=== PATIENT | male | born 1995 | race Caucasian/White ===

== ENCOUNTER 2020-10-09 12:53 | Observation (INO) | payer MEDICAID ==
[2020-10-09] MEDS ORDERED: Sodium Chloride 0.9% 10 ML Syringe FLUSH PRN (12:54)
[2020-10-09] MEDS ORDERED: Sodium Chloride 0.9% 1,000 ML IV ONE (12:56)
[2020-10-09] MEDS ORDERED: Naloxone 2 MG in Sodium Chloride 0.9% 500 ML IV SCH (13:00)
--- NOTE | 2020-10-09 13:34 | CR ---
PROCEDURE INFORMATION: Exam: XR Chest Exam date and time: 10/09/2020 1:08 PM Age: 24 years old Clinical indication: Other: S/P cpr for overdose TECHNIQUE: Imaging protocol: XR of the chest. Views: 1 view. COMPARISON: No relevant prior studies available. FINDINGS: Lungs: The lungs are hyperinflated, consistent with underlying small airways disease. Pleural spaces: There is no evidence of pneumothorax. There are no pleural effusions present. Heart/Mediastinum: Unremarkable. No cardiomegaly. Bones/joints: Unremarkable. IMPRESSION: 1. The lungs are hyperinflated, consistent with underlying small airways disease. 2. There is no evidence of pneumothorax.
[2020-10-09 13:45] LABS: ANION GAP 14.7 mEq/L (7-13); CHLORIDE,CL 96 mmol/L (98-107); SODIUM,NA 137 mmol/L (136-145)
[2020-10-09 13:49] LABS: PTT,PARTIAL THROMBOPLSTIN TIME 21.3 SEC (22.0-34.0)
[2020-10-09] MEDS ORDERED: Potassium Chloride 10 MEQ Tab.ER PO ONE ×2 (13:58→18:59)
[2020-10-09] MEDS ORDERED: Potassium Chloride 10 MEQ in Premix Bag 1 BAG IV ONE (13:58)
[2020-10-09] MEDS ORDERED: Lidocaine 1% 30 ML SDV ONE (14:00)
[2020-10-09 15:14] LABS: CORONAVIRUS COVID-19 NAA NEGATIVE (NEGATIVE)
--- NOTE | 2020-10-09 15:15 | EDM.PDOC ---
Scribed by Roslyn Bejarano 10/09/20 [id number] for Ml Chen MD ED HPI GENERAL MEDICAL PROBLEM - General Chief Complaint: Drug or Alcohol Abuse Stated Complaint: IN BY AMBULANCE Time Seen by Provider: 10/09/20 12:52 Source of Information: Reports: Patient, EMS, EMS Notes Reviewed, RN, RN Notes Reviewed History Limitations: Reports: No Limitations - History of Present Illness INITIAL COMMENTS - FREE TEXT/NARRATIVE: Patient arrives to ED by [facility]. The patient was found pulseless and not breathing in the shower. CPR was initiated by bystanders. EMS administered Narcan 2mg and patient promptly woke up. Patient admits to IV Heroin use x4 days. He claims he was clean and sober for over a year, but relapsed due to stress at home. Pt states he began using drugs at age 13yrs and quickly became addicted to Heroin. He claims he has overdosed before, but never had to have CPR. Now in the ER pt is awake, alert, and cooperative. He denies p ain. Admits to feeling very cold. Pt denies suicidal intent. Onset: Today, Unknown/Unsure Duration: Resolved Prior to Arrival Location: Reports: Generalized Severity: Severe Associated Symptoms: Reports: No Other Symptoms - Related Data Allergies Allergy/AdvReac Type Severity Reaction Status Date / Time Unable to Assess Allergy Unverified 10/09/20 15:02 Home Meds: Home Meds . [No Known Home Meds] 10/09/20 [History] Past Medical History Psychiatric History: Reports: Addiction Social & Family History - Family History Family Medical History: Unobtainable - Recreational Drug Use Recreational Drug Use: Yes Drug Use in Last 12 Months: Yes Recreational Drug Type: Reports: Heroin - Living Situation & Occupation Living situation: Reports: with Significant Other ED ROS GENERAL - Review of Systems Review Of Systems: Comprehensive ROS is negative, except as noted in HPI. ED EXAM, GENERAL - Physical Exam Exam: See Below Exam Limited By: No Limitations General Appearance: Alert, WD/WN, No Apparent Distress Eye Exam: Bilateral Eye: EOMI, PERRL (pin point pupils) Ears: Normal External Exam, Hearing Grossly Normal Nose: Other (Dried blood at nares) Throat/Mouth: Normal Inspection, Normal Lips, Normal Oropharynx, Normal Voice, No Airway Compromise Head: Atraumatic, Normocephalic Neck: Normal Inspection, Supple, Non-Tender, Full Range of Motion Respiratory/Chest: No Respiratory Distress, Lungs Clear, Normal Breath Sounds, No Accessory Muscle Use, Chest Non-Tender Cardiovascular: Normal Peripheral Pulses, Regular Rate, Rhythm, No Edema, No Gallop, No JVD, No Murmur, No Rub GI/Abdominal: Normal Bowel Sounds, Soft, Non-Tender, No Organomegaly, No Distention, No Abnormal Bruit, No Mass Back Exam: Normal Inspection, Full Range of Motion, NT Extremities: Normal Range of Motion, Non-Tender, No Pedal Edema, Normal Capillary Refill, Other (Extensive new and old needle track vega) Neurological: Alert, Oriented, CN II-XII Intact, Normal Cognition, Normal Reflexes, No Motor/Sensory Deficits Psychiatric: Normal Affect, Normal Mood Skin Exam: Warm, Dry, Intact, Normal Color, No Rash #1 Interpretation EKG Date: 10/09/20 Time: 13:09 Rhythm: Other (sinus rhythm) Rate (Beats/Min): 78 [place]: Normal P-Wave: Present QRS: Other (left ventricular hypertrophy) ST-T: Normal QT: Normal Comparison: NA - No Prior EKG Course - Vital Signs Last Recorded V/S: Last Vital Signs Temp 98 F 10/09/20 14:45 Pulse 100 10/09/20 14:45 Resp 16 10/09/20 14:45 BP 94/52 L 10/09/20 14:45 Pulse Ox 96 10/09/20 14:45 - Orders/Labs/Meds Orders: Active Orders 24 hr Category Date Time Status EKG 12 Lead [EKG Documentation Completion] [RC] STAT Care 10/09/20 12:55 Active Peripheral IV Care [RC] . DIRECTED Care 10/09/20 12:56 Active COVID-19/FLU A+B [MOLEC] Stat Lab 10/09/20 14:31 Received UA W/MICROSCOPIC [URIN] Stat Lab 10/09/20 14:58 Results Naloxone [Narcan] 2 mg Med 10/09/20 13:00 Active Sodium Chloride 0.9% [Normal Saline] 500 ml IV ASDIRECTED Sodium Chloride 0.9% [Saline Flush] Med 10/09/20 12:54 Active 10 ml FLUSH ASDIRECTED PRN Peripheral IV Insertion Adult [OM.PC] Stat Oth 10/09/20 12:55 Ordered Medication Orders Naloxone HCl 2 mg/ Sodium (Chloride) 502 mls @ 100 mls/hr IV ASDIRECTED ANGELA; Protocol Last Titration: 10/09/20 14:57 Dose: 0.1 mg/hr, 25.1 mls/hr Documented by: [id number] Titration: 10/09/20 14:08 Dose: 0.2 mg/hr, 50.2 mls/hr Documented by: [email or web address] Admin: 10/09/20 13:30 Dose: 0.4 mg/hr, 100.4 mls/hr Documented by: [email or web address] Sodium Chloride (Sodium Chloride 0.9% 10 Ml Syringe) 10 ml FLUSH ASDIRECTED PRN PRN Reason: Keep Vein Open Last Admin: 10/09/20 13:38 Dose: 10 ml Documented by: [id number] Labs: Laboratory Tests 10/09/20 10/09/20 10/09/20 Range/Units 13:13 13:13 13:13 WBC 4.2 L (5.0-10.0) 10^3/uL RBC 4.40 L (4.6-6.2) 10^6/uL Hgb 14.1 (14.0-18.0) g/dL Hct 39.1 L (40.0-54.0) % MCV 88.9 (80-100) fL MCH 32.0 (27.0-34.0) pg MCHC 36.1 H (33.0-35.0) g/dL Plt Count 340 (150-450) 10^3/uL Neut % (Auto) 57.1 (42.2-75.2) % Lymph % (Auto) 34.0 (20.5-50.1) % [place] % (Auto) 7.5 (2-8) % Eos % (Auto) 1.2 (1.0-3.0) % Baso % (Auto) 0.2 (0.0-1.0) % PT 11.6 (9.0-12.0) SEC INR 1.2 (0.9-1.2) APTT 21.3 L (22.0-34.0) SEC Sodium 137 (136-145) mmol/L Potassium 2.7 L (3.5-5.1) mmol/L Chloride 96 L (98-107) mmol/L Carbon Dioxide 29 (21-32) mmol/L Anion Gap 14.7 H (7-13) mEq/L BUN 13 (7-18) mg/dL Creatinine 1.25 (0.70-1.30) mg/dL Est Cr Clr Drug Dosing 86.09 mL/min Estimated GFR (MDRD) > 60 BUN/Creatinine Ratio 10.4 (No establ ref range) Glucose 196 H (70-99) mg/dL Calcium 8.6 (8.5-10.1) mg/dL Total Bilirubin 1.2 H (0.2-1.0) mg/dL AST 26 (15-37) U/L ALT 27 (16-63) U/L Alkaline Phosphatase 68 (46-116) U/L Troponin I < 0.017 (0.000-0.056) ng/mL Total Protein 7.0 (6.4-8.2) g/dL Albumin 4.1 (3.4-5.0) g/dL Globulin 2.9 Albumin/Globulin Ratio 1.4 Urine Color (YELLOW) Urine Appearance (CLEAR) Urine pH (5.0-9.0) Ur Specific [place] (1.005-1.030) Urine Protein (NEGATIVE) Urine Glucose (UA) (NEGATIVE) Urine Ketones (NEGATIVE) Urine Occult Blood (NEGATIVE) Urine Nitrite (NEGATIVE) Urine Bilirubin (NEGATIVE) Urine Urobilinogen (0.2-1.0) mg/dL Ur Leukocyte Esterase (NEGATIVE) Urine Opiates Screen (NEGATIVE) Ur Oxycodone Screen (NEGATIVE) Urine Methadone Screen (NEGATIVE) Ur Barbiturates Screen (NEGATIVE) U Tricyclic Antidepress (NEGATIVE) Ur Phencyclidine Scrn (NEGATIVE) Ur Amphetamine Screen (NEGATIVE) U Methamphetamines Scrn (NEGATIVE) Urine MDMA Screen (NEGATIVE) U Benzodiazepines Scrn (NEGATIVE) Urine Cocaine Screen (NEGATIVE) U Marijuana (THC) Screen (NEGATIVE) Ethyl Alcohol < 3 (0) mg/dL 10/09/20 10/09/20 Range/Units 14:58 14:58 WBC (5.0-10.0) 10^3/uL RBC (4.6-6.2) 10^6/uL Hgb (14.0-18.0) g/dL Hct (40.0-54.0) % MCV (80-100) fL MCH (27.0-34.0) pg MCHC (33.0-35.0) g/dL Plt Count (150-450) 10^3/uL Neut % (Auto) (42.2-75.2) % Lymph % (Auto) (20.5-50.1) % [place] % (Auto) (2-8) % Eos % (Auto) (1.0-3.0) % Baso % (Auto) (0.0-1.0) % PT (9.0-12.0) SEC INR (0.9-1.2) APTT (22.0-34.0) SEC Sodium (136-145) mmol/L Potassium (3.5-5.1) mmol/L Chloride (98-107) mmol/L Carbon Dioxide (21-32) mmol/L Anion Gap (7-13) mEq/L BUN (7-18) mg/dL Creatinine (0.70-1.30) mg/dL Est Cr Clr Drug Dosing mL/min Estimated GFR (MDRD) BUN/Creatinine Ratio (No establ ref range) Glucose (70-99) mg/dL Calcium (8.5-10.1) mg/dL Total Bilirubin (0.2-1.0) mg/dL AST (15-37) U/L ALT (16-63) U/L Alkaline Phosphatase (46-116) U/L Troponin I (0.000-0.056) ng/mL Total Protein (6.4-8.2) g/dL Albumin (3.4-5.0) g/dL Globulin Albumin/Globulin Ratio Urine Color Yellow (YELLOW) Urine Appearance Slightly cloudy (CLEAR) Urine pH 7.0 (5.0-9.0) Ur Specific [place] 1.025 (1.005-1.030) Urine Protein Trace H (NEGATIVE) Urine Glucose (UA) Negative (NEGATIVE) Urine Ketones Trace H (NEGATIVE) Urine Occult Blood Trace-intact H (NEGATIVE) Urine Nitrite Negative (NEGATIVE) Urine Bilirubin Negative (NEGATIVE) Urine Urobilinogen 1.0 (0.2-1.0) mg/dL Ur Leukocyte Esterase Negative (NEGATIVE) Urine Opiates Screen Negative (NEGATIVE) Ur Oxycodone Screen Negative (NEGATIVE) Urine Methadone Screen Negative (NEGATIVE) Ur Barbiturates Screen Negative (NEGATIVE) U Tricyclic Antidepress Negative (NEGATIVE) Ur Phencyclidine Scrn Negative (NEGATIVE) Ur Amphetamine Screen Positive H (NEGATIVE) U Methamphetamines Scrn Positive H (NEGATIVE) Urine MDMA Screen Negative (NEGATIVE) U Benzodiazepines Scrn Negative (NEGATIVE) Urine Cocaine Screen Negative (NEGATIVE) U Marijuana (THC) Screen Positive H (NEGATIVE) Ethyl Alcohol (0) mg/dL Meds: Medications Generic Name Dose Route Start Last Admin Trade Name Freq PRN Reason Stop Dose Admin Naloxone HCl 2 mg/ Sodium 502 mls @ 100 mls/hr 10/09/20 13:00 10/09/20 14:57 Chloride IV 0.1 mg/hr ASDIRECTED ANGELA 25.1 mls/hr Titration Protocol Sodium Chloride 10 ml 10/09/20 12:54 10/09/20 13:38 Sodium Chloride 0.9% 10 Ml Syringe FLUSH 10 ml ASDIRECTED PRN Administration Keep Vein Open Discontinued Medications Generic Name Dose Route Start Last Admin Trade Name Freq PRN Reason Stop Dose Admin Sodium Chloride 1,000 mls @ 999 mls/hr 10/09/20 12:56 10/09/20 13:30 Normal Saline IV 10/09/20 13:56 999 mls/hr .BOLUS ONE Administration Potassium Chloride 10 meq/ 100 mls @ 100 mls/hr 10/09/20 13:58 10/09/20 14:19 Premix IV 10/09/20 14:57 100 mls/hr ONETIME ONE Administration Lidocaine HCl 30 ml 10/09/20 14:00 10/09/20 14:42 Lidocaine 1% 30 Ml Sdv .XX 10/09/20 14:01 30 ml ONETIME ONE Administration Potassium Chloride 60 meq 10/09/20 13:58 10/09/20 14:18 Potassium Chloride 10 Meq Tab.Er PO 10/09/20 13:59 60 meq ONETIME ONE Administration - Radiology Interpretation Free Text/Narrative:: [facility] Final Radiology Report Call: [phone] assistance Online chat: [email or web address] Name: RONNIE ALVARENGA Age: 24Years M Date: 10/09/2020 SSN: -- : [id number] Study: CR CHEST 1V FRONTAL Requesting Physician: ML CHEN Images: 2 Addl Studies: Provided Clinical History: s/p CPR for overdose Contrast: Contrast Medium: Contrast Amount: Contrast Method: CONFIDENTIALITY STATEMENT This report is intended only for use by the referring physician, and only in accordance with law. If you received this in error, call [phone]. Page 1 of 1 PROCEDURE INFORMATION: Exam: XR Chest Exam date and time: 10/09/2020 1:08 PM Age: 24 years old Clinical indication: Other: S/P cpr for overdose TECHNIQUE: Imaging protocol: XR of the chest. Views: 1 view. COMPARISON: No relevant prior studies available. FINDINGS: Lungs: The lungs are hyperinflated, consistent with underlying small airways disease. Pleural spaces: There is no evidence of pneumothorax. There are no pleural effusions present. Heart/Mediastinum: Unremarkable. No cardiomegaly. Bones/joints: Unremarkable. IMPRESSION: 1. The lungs are hyperinflated, consistent with underlying small airways disease. 2. There is no evidence of pneumothorax. Thank you for allowing us to participate in the care of your patient. Dictated and Authenticated by: Rajeev Simon DO 10/09/2020 1:33 PM Central Time ([place] & [place]) Departure - Departure Time of Disposition: 15:13 (admitted to Dr. Mejia) Disposition: Refer to Observation Condition: Good Clinical Impression: Polysubstance abuse, Hypokalemia Accidental overdose Qualifiers: Encounter type: initial encounter Qualified Code(s): T50.901A - Poisoning by unspecified drugs, medicaments and biological substances, accidental (unintentional), initial encounter - Discharge Information *PRESCRIPTION DRUG MONITORING PROGRAM REVIEWED*: No *COPY OF PRESCRIPTION DRUG MONITORING REPORT IN PATIENT EVITA: No Forms: ED Department Discharge Sepsis Event Note (ED) - Focused Exam Vital Signs: Vital Signs Temp Pulse Resp BP Pulse Ox 10/09/20 14:45 98 F 100 16 94/52 L 96 - My Orders Last 24 Hours: My Active Orders 10/09/20 12:54 Sodium Chloride 0.9% [Saline Flush] 10 ml FLUSH ASDIRECTED PRN 10/09/20 12:55 EKG 12 Lead [EKG Documentation Completion] [RC] STAT Peripheral IV Insertion Adult [OM.PC] Stat 10/09/20 12:56 Peripheral IV Care [RC] . DIRECTED 10/09/20 13:00 Naloxone [Narcan] 2 mg Sodium Chloride 0.9% [Normal Saline] 500 ml IV ASDIR ECTED 10/09/20 14:31 COVID-19/FLU A+B [MOLEC] Stat 10/09/20 14:58 UA W/MICROSCOPIC [URIN] Stat - Assessment/Plan Last 24 Hours: My Active Orders 10/09/20 12:54 Sodium Chloride 0.9% [Saline Flush] 10 ml FLUSH ASDIRECTED PRN 10/09/20 12:55 EKG 12 Lead [EKG Documentation Completion] [RC] STAT Peripheral IV Insertion Adult [OM.PC] Stat 10/09/20 12:56 Peripheral IV Care [RC] . DIRECTED 10/09/20 13:00 Naloxone [Narcan] 2 mg Sodium Chloride 0.9% [Normal Saline] 500 ml IV ASDIRECTED 10/09/20 14:31 COVID-19/FLU A+B [MOLEC] Stat 10/09/20 14:58 UA W/MICROSCOPIC [URIN] Stat I have read and agree with the documentation that has been completed regarding this visit. By signing this record, I attest that the documentation was completed in my physical presence and is an accurate record of the encounter.
[2020-10-09] MEDS ORDERED: Acetaminophen 325 MG Tab PO PRN (15:50)
[2020-10-09] MEDS ORDERED: Ondansetron 4 MG/2 ML SDV IVPUSH PRN (15:50)
--- NOTE | 2020-10-09 15:59 | PCM.SN.2 ---
- Free Text/Narrative Note: START OF DOCTOR BROOKEMIJulio HISTORY AND PHYSICAL / CONSULTATION NOTE Chief Complaint: Drug overdose History of Present Illness: The patient is a 24-year-old male who was transferred to the emergency department due to drug overdose. Apparently the patient was found in a shower unresponsive after injecting heroin. From what was conveyed to me, the patient was pulseless and CPR was initiated and the patient was successfully resuscitated from a cardiac standpoint. The patient received Narcan and regained consciousness as well. Patient has extensive history of drug abuse for which he states he started using heroin at the age of 14. At the present time the patient endorses no complaints. He denies fever, rigors, nausea, vomiting, cough, wheeze, abdominal pain, dyspnea, or any other constitutional complaints. He presents for further evaluation Surgical History: Bilateral myringotomy tube placement as a child with subsequent removal Family History: Denies Social History: Tobacco: Former smoker Alcohol: Rare Caffeine: Cola Drugs: Present drug use: Methamphetamine, heroin, marijuana. Past drug use: Crack, cocaine, shrooms, LSD Allergies: No known drug allergies Code Status: Full Pertinent Laboratory Results / Pertinent Radiology Results / Pertinent Diagnostic Results / Pertinent Vital Signs: Blood pressure 94/52, pulse 100, respiration 16, temperature 90 degrees, 9 6% room air, potassium 2.7, total bilirubin is 1.2. Urine drug screen positive for amphetamine, methamphetamine, marijuana Physical Examination: General: -Alert -No acute distress -No dyspnea -No tachypnea -edentulous Head: -Atraumatic -Normocephalic Eyes: -Pupils equally round and reactive to light and accommodation -Extraocular muscles intact Neurological: -Cranial nerves II-XII intact Neck: -No jugular venous distention -No thyromegaly -No cervical lymphadenopathy Heart: -Regular rate -Regular rhythm -No murmurs -No gallops -No rubs Lungs: -No wheeze -No rhonchi -No rales Abdomen: -Normal bowel sounds in all four quadrants -No rebound -No guarding -No tenderness Extremities: -2/4 pulse in all four extremities -No clubbing -No cyanosis -No edema -No calf tenderness present bilaterally -Negative Homans sign bilaterally Musculoskeletal: -5/5 bilateral upper extremity strength -5/5 bilateral lower extremity strength -Sensorium of bilateral upper extremities are equal and intact -Sensorium of bilateral lower extremities are equal and intact Additional Details / Additional Findings / Exceptions / Miscellaneous: Assessment / Plan: Drug overdose. Seizure caution. Neuro checks every 4 hours. Telemetry monitoring. IV normal saline 100 mL/h. Check HIV, hepatitis panel, RPR. I requested case management evaluate the patient for referral for drug rehabilitation on discharge Polysubstance abuse. The patient will be counseled regarding cessation of methamphetamine, heroin, marijuana Hypokalemia. Telemetry monitoring. Will monitor potassium levels intermittently and supplement as necessary Hyperbilirubinemia. Will monitor LFTs periodically with CMP. IV normal saline 100 mL/h DVT prophylaxis. Bilateral CD Disposition: Anticipate discharge within 24 hours END OF DOCTOR EMAMIS HISTORY AND PHYSICAL / CONSULTATION NOTE
[2020-10-09] MEDS: Sodium Chloride 0.9% 1,000 ML IV SCH (17:07)
[2020-10-10] MEDS: Sodium Chloride 0.9% 1,000 ML IV SCH (03:06)
--- NOTE | 2020-10-10 07:37 | PCM.SN.2 ---
- Free Text/Narrative Note: START OF DOCTOR EMAMIS DISCHARGE SUMMARY Date of Admission: October 09, 2020 Date of Discharge: 7:34 AM on October 10, 2020 Primary Diagnosis: Drug overdose with heroin with subsequent cardiopulmonary arrest with successful cardiac resuscitation and regaining consciousness with administration of Narcan Secondary Diagnosis: Polysubstance abuse with urine drug screen positive for amphetamine, methamphetamine, marijuana Hypokalemia, resolved Hyperbilirubinemia Microscopic hematuria Consultations: None Condition on Discharge: Good Disposition: The patient will be advised to follow-up with urology within 1 month of discharge for microscopic hematuria The patient will receive a referral for drug rehabilitation upon discharge for his extensive history of drug abuse and ongoing drug abuse Discharge Medications: None END OF DOCTOR EMAMIS DISCHARGE SUMMARY
== END 2020-10-10 11:00 | disposition home or self-care (01) ==
LOC: DL.ED 12:53 → DL.MS 15:17 → DL.ED 15:22
PROVIDERS: ADMIT Internal Medicine; ATTEND Internal Medicine
DX: T40.1X1A Poisoning by heroin, accidental (unintentional), initial encounter (principal); E87.6 Hypokalemia; F19.10 Other psychoactive substance abuse, uncomplicated; E80.6 Other disorders of bilirubin metabolism; Z20.822 Contact with and (suspected) exposure to COVID-19; Z98.890 Other specified postprocedural states; Z87.891 Personal history of nicotine dependence
CPT/HCPCS: 0240U; 36415; 71045; 80053; 80074; 80076; 80305-QW; 80307; 81001; 83735; 84132; 84484; 85025; 85610; 85730; 86592; 87389; 93005; 93010; 96365; 96366; 96368; 99284; 99285-25; A9270-GY; G0378; J2310; J3480; J7030; J7040

== ENCOUNTER 2020-12-11 12:42 | Emergency (ER) | payer MEDICAID ==
--- NOTE | 2020-12-11 12:44 | EDM.PDOC ---
ED HPI GENERAL MEDICAL PROBLEM - General Chief Complaint: Abdominal Pain Stated Complaint: COMING FROM CLINIC Time Seen by Provider: 12/11/20 13:15 Source of Information: Reports: Patient, Old Records, Provider (Sabino DRAKE), RN, RN Notes Reviewed History Limitations: Reports: No Limitations - History of Present Illness INITIAL COMMENTS - FREE TEXT/NARRATIVE: Pt sent from clinic by Sabino DRAKE for evaluation of severe diffuse abdominal pain. Pt reports onset of abdominal pain and diarrhea 2 or 3 days ago. The pain has persistently worsened and today became severe. He admits to nausea, but no vomiting. Pt rates the pain 10/10. Nothing alleviates the pain. Any movement aggravates the pain. Pt denies any past surgical Hx to the abdomen. Pt is unsure if he has had any fevers. Onset: Gradual Duration: Day(s): (2-3), Constant, Getting Worse Location: Reports: Abdomen Quality: Reports: Ache Severity: Severe Improves with: Reports: None Worsens with: Reports: Movement Associated Symptoms: Reports: No Other Symptoms - Related Data Allergies Allergy/AdvReac Type Severity Reaction Status Date / Time No Known Allergies Allergy Verified 10/09/20 16:04 Past Medical History - Past Health History Medical/Surgical History: Denies Medical/Surgical History Cardiovascular History: Reports: Automatic Implantable Cardioverter Defibrillators Respiratory History: Reports: Asthma Gastrointestinal History: Reports: None Musculoskeletal History: Reports: Fracture Other Musculoskeletal History: Hx of right ankle fracture Neurological History: Reports: Seizure Psychiatric History: Reports: ADHD, Addiction, Anxiety Endocrine/Metabolic History: Reports: Hypokalemia Dermatologic History: Reports: None - Infectious Disease History Infectious Disease History: Reports: None - Past Surgical History Other Neurological Surgeries/Procedures: Hx of seizure over a yr. ago. pt.states possibly from hx of past drug use. Social & Family History - Family History Family Medical History: Unobtainable - Caffeine Use Caffeine Use: Reports: Soda Other Caffeine Use: unknown - Living Situation & Occupation Living situation: Reports: with Spouse ED ROS GENERAL - Review of Systems Review Of Systems: Comprehensive ROS is negative, except as noted in HPI. ED EXAM, GI/ABD - Physical Exam Exam: See Below Exam Limited By: No Limitations General Appearance: Alert, Anxious, Mild Distress, Thin Eyes: Bilateral: Normal Appearance (No scleral icterus) Nose: Normal Inspection Throat/Mouth: Normal Lips, Normal Voice, No Airway Compromise, Other (Dry oral mucosa) Head: Atraumatic, Normocephalic Neck: Normal Inspection Respiratory/Chest: No Respiratory Distress, Lungs Clear, Normal Breath Sounds, No Accessory Muscle Use, Chest Non-Tender Cardiovascular: Regular Rate, Rhythm, No Edema GI/Abdominal Exam: Soft, No Distention, Guarding, Rebound, Tender (acutely tender, diffusely tender) (Male) Exam: Deferred Rectal (Males) Exam: Deferred Back Exam: No: Vertebral Tenderness Extremities: Normal Inspection Neurological: Alert, Oriented, No Motor/Sensory Deficits Psychiatric: Normal Mood, Tearful Skin Exam: Warm, Dry, Intact, No Rash, Pallor. No: Ecchymosis, Jaundice, Petechiae Course - Vital Signs Last Recorded V/S: Last Vital Signs Temp 99.0 F 12/11/20 13:10 Pulse 92 12/11/20 13:10 Resp 22 H 12/11/20 13:10 BP 114/91 H 12/11/20 13:10 Pulse Ox 100 12/11/20 13:10 - Orders/Labs/Meds Orders: Active Orders 24 hr Category Date Time Status Peripheral IV Care [RC] . DIRECTED Care 12/11/20 12:45 Active Piperacillin/Tazobactam [Zosyn] 3.375 gm Med 12/11/20 13:31 Ordered Sodium Chloride 0.9% [Normal Saline] 100 ml IV ONETIME Sodium Chloride 0.9% [Normal Saline] 1,000 ml Med 12/11/20 13:30 Ordered IV .BOLUS Sodium Chloride 0.9% [Saline Flush] Med 12/11/20 12:45 Active 10 ml FLUSH ASDIRECTED PRN Peripheral IV Insertion Adult [OM.PC] Stat Oth 12/11/20 12:45 Ordered Medication Orders Sodium Chloride (Normal Saline) 1,000 mls @ 999 mls/hr IV .BOLUS ONE Stop: 12/11/20 14:30 Last Admin: 12/11/20 13:54 Dose: 999 mls/hr Documented by: Piperacillin Sod/Tazobactam (Sod 3.375 gm/ Sodium Chloride) 100 mls @ 200 mls/hr IV ONETIME ONE Stop: 12/11/20 14:00 Last Admin: 12/11/20 13:54 Dose: 200 mls/hr Documented by: Sodium Chloride (Sodium Chloride 0.9% 10 Ml Syringe) 10 ml FLUSH ASDIRECTED PRN PRN Reason: Keep Vein Open Labs: See scanned labs results from 12/11/20 [facility] visit. WBC 16,170. Meds: Medications Generic Name Dose Route Start Last Admin Trade Name Freq PRN Reason Stop Dose Admin Sodium Chloride 1,000 mls @ 999 mls/hr 12/11/20 13:30 12/11/20 13:54 Normal Saline IV 12/11/20 14:30 999 mls/hr .BOLUS ONE Administration Piperacillin Sod/Tazobactam 100 mls @ 200 mls/hr 12/11/20 13:31 12/11/20 13:54 Sod 3.375 gm/ Sodium Chloride IV 12/11/20 14:00 200 mls/hr ONETIME ONE Administration Sodium Chloride 10 ml 12/11/20 12:45 Sodium Chloride 0.9% 10 Ml Syringe FLUSH ASDIRECTED PRN Keep Vein Open Discontinued Medications Generic Name Dose Route Start Last Admin Trade Name Freq PRN Reason Stop Dose Admin Hydromorphone HCl 1 mg 12/11/20 13:48 Hydromorphone 1 Mg/Ml Syringe IVPUSH 12/11/20 13:49 ONETIME ONE Sodium Chloride 1,000 mls @ 999 mls/hr 12/11/20 12:45 12/11/20 12:55 Normal Saline IV 12/11/20 13:45 999 mls/hr .BOLUS ONE Administration Iopamidol 100 ml 12/11/20 12:45 12/11/20 13:29 Iopamidol 612 Mg/Ml 100 Ml Bottle IVPUSH 12/11/20 12:46 75 ml ONETIME ONE Administration Ondansetron HCl 4 mg 12/11/20 12:45 12/11/20 13:54 Ondansetron 4 Mg/2 Ml Sdv IV 12/11/20 12:46 4 mg ONETIME ONE Administration - Radiology Interpretation Free Text/Narrative:: CT Abd/Pelvis: free fluid, suspected ruptured appendix per radiologist's report. - Re-Assessments/Exams Free Text/Narrative Re-Assessment/Exam: 12/11/20 14:[address] Bassett via [facility], who advises to transfer the pt to [facility] ER where she can perform a surgical consultation. Departure - Departure Time of Disposition: 14:03 Disposition: DC/Tfer to [facility] 02 Condition: Undetermined Clinical Impression: Acute abdomen - Discharge Information *PRESCRIPTION DRUG MONITORING PROGRAM REVIEWED*: Not Applicable *COPY OF PRESCRIPTION DRUG MONITORING REPORT IN PATIENT EVITA: Not Applicable Forms: ED Department Discharge, Interfacility Transfer [facility] Sepsis Event Note (ED) - Focused Exam Vital Signs: Vital Signs Temp Pulse Resp BP Pulse Ox 12/11/20 13:10 99.0 F 92 22 H 114/91 H 100 - My Orders Last 24 Hours: My Active Orders 12/11/20 12:45 Peripheral IV Care [RC] . DIRECTED Sodium Chloride 0.9% [Saline Flush] 10 ml FLUSH ASDIRECTED PRN Peripheral IV Insertion Adult [OM.PC] Stat 12/11/20 13:30 Sodium Chloride 0.9% [Normal Saline] 1,000 ml IV .BOLUS 12/11/20 13:31 Piperacillin/Tazobactam [Zosyn] 3.375 gm Sodium Chloride 0.9% [Normal Saline] 100 ml IV ONETIME - Assessment/Plan Last 24 Hours: My Active Orders 12/11/20 12:45 Peripheral IV Care [RC] . DIRECTED Sodium Chloride 0.9% [Saline Flush] 10 ml FLUSH ASDIRECTED PRN Peripheral IV Insertion Adult [OM.PC] Stat 12/11/20 13:30 Sodium Chloride 0.9% [Normal Saline] 1,000 ml IV .BOLUS 12/11/20 13:31 Piperacillin/Tazobactam [Zosyn] 3.375 gm Sodium Chloride 0.9% [Normal Saline] 100 ml IV ONETIME
[2020-12-11] MEDS ORDERED: Ondansetron 4 MG/2 ML SDV IV ONE (12:45)
[2020-12-11] MEDS ORDERED: Iopamidol 612 MG/ML 100 ML Bottle IVPUSH ONE (12:45)
[2020-12-11] MEDS ORDERED: Sodium Chloride 0.9% 10 ML Syringe FLUSH PRN (12:45)
[2020-12-11] MEDS ORDERED: Sodium Chloride 0.9% 1,000 ML IV ONE ×2 (12:45→13:30)
[2020-12-11] MEDS ORDERED: Piperacillin/Tazobactam 3.375 GM in Sodium Chloride 0.9% 100 ML IV ONE (13:31)
[2020-12-11] MEDS ORDERED: HYDROmorphone 1 MG/ML Syringe IVPUSH ONE (13:48)
--- NOTE | 2020-12-11 13:50 | CT ---
EXAMINATION: Abdomen Pelvis w Cont SEX: Male AGE: 25 years CLINICAL HISTORY: 25-year-old 134 pound male with acute abdominal PAIN ("peritoneal signs") and abnormally elevated serum WBC (16,170). Scan technique: Volume acquisition of data emergency CT scan of the abdomen and pelvis obtained without oral contrast but during the intravenous administration 75 cc nonionic Isovue contrast at 3 cc/s via injector while patient was lying supine on the Siemens multislice scanner [place], [place]. All data archived in the PACS system for storage, reformatting axial/sagittal/coronal planes and study. Interpretation: Abnormal. (Case discussed with ER provider Dr. Chen at 1345 hours) 1. *Free fluid concentrated in the RLQ and dependent pelvis (surrounding and "bathing" bowel loops) extends up into the RUQ surrounding normal-appearing gallbladder. Normal liver and no gallstones or intrahepatic biliary duct dilatation. 2. No calcified appendicoliths or abscess and I'm unable to define the appendix with certainty. 3. No solid pelvic or abdominal mass lesion. No mesenteric or retroperitoneal lymphadenopathy. No sign of mechanical bowel obstruction or free intraperitoneal air. 4. Stomach, spleen, pancreas, adrenal glands and kidneys anatomically correct i.e. negative. Bladder prostate and seminal vesicles unremarkable. No hydroceles. 5. Lung bases clear. Normal cardiac silhouette. No pericardial or pleural effusions. Normal aorta iliac vessels. 6. Lumbar spine unremarkable.
== END 2020-12-11 14:32 ==
LOC: DL.ED 12:42
DX: R10.84 Generalized abdominal pain (principal); J45.909 Unspecified asthma, uncomplicated
CPT/HCPCS: 74177; 96365; 96375; 99285; J1170; J2405; J2543; J7030; Q9967

== ENCOUNTER 2021-01-10 07:15 | Emergency (ER) | payer MEDICAID ==
[2021-01-10] MEDS ORDERED: Sodium Chloride 0.9% 10 ML Syringe FLUSH PRN (07:35)
[2021-01-10] MEDS ORDERED: Ondansetron 4 MG/2 ML SDV IV ONE ×2 (07:38→09:52)
[2021-01-10] MEDS ORDERED: HYDROmorphone 1 MG/ML Syringe IVPUSH ONE (07:38)
[2021-01-10] MEDS ORDERED: Sodium Chloride 0.9% 1,000 ML IV ONE ×2 (07:38→10:30)
--- NOTE | 2021-01-10 07:40 | EDM.PDOC ---
"<Luiz Reese Leanne - Last Filed: 01/10/21 11:39> ED HPI GENERAL MEDICAL PROBLEM - General Chief Complaint: Abdominal Pain Stated Complaint: HAD SURGERY, SEVERE STOMACH PAIN Time Seen by Provider: 01/10/21 07:35 Source of Information: Reports: Patient History Limitations: Reports: No Limitations - History of Present Illness INITIAL COMMENTS - FREE TEXT/NARRATIVE: 25 y/o very anxious male c/o abd pn that started when he woke up this morning. Hx of perforated ulcers in his stomach for which he had surgery around the first part of Dec. The pain is 10/10 sharp constant and diffuse over the abd. Denies fever, cough, chills, drugs, etoh, cp, db, blood in stool or urine. Onset: Today Duration: Minutes: Quality: Reports: Sharp Severity: Severe Improves with: Reports: None Worsens with: Reports: None Bilateral Abdomen Pain Score (Numeric/FACES): 7 - Related Data Allergies Allergy/AdvReac Type Severity Reaction Status Date / Time No Known Allergies Allergy Verified 10/09/20 16:04 Home Meds: Home Meds . [No Known Home Meds] 12/11/20 [History] Past Medical History - Past Health History Medical/Surgical History: Denies Medical/Surgical History Cardiovascular History: Reports: Automatic Implantable Cardioverter Defibrillators Respiratory History: Reports: Asthma Gastrointestinal History: Reports: None Musculoskeletal History: Reports: Fracture Other Musculoskeletal History: Hx of right ankle fracture Neurological History: Reports: Seizure Psychiatric History: Reports: ADHD, Addiction, Anxiety Endocrine/Metabolic History: Reports: Hypokalemia Dermatologic History: Reports: None - Infectious Disease History Infectious Disease History: Reports: None - Past Surgical History Other Neurological Surgeries/Procedures: Hx of seizure over a yr. ago. pt.states possibly from hx of past drug use. Social & Family History - Family History Family Medical History: Unobtainable - Caffeine Use Caffeine Use: Reports: None Other Caffeine Use: unknown - Living Situation & Occupation Living situation: Reports: with Spouse ED ROS GENERAL - Review of Systems Review Of Systems: Comprehensive ROS is negative, except as noted in HPI. ED EXAM, GI/ABD - Physical Exam Exam: See Below Exam Limited By: No Limitations General Appearance: Alert, Anxious Nose: Normal Inspection, Normal Mucosa, No Blood Throat/Mouth: Normal Inspection Head: Atraumatic, Normocephalic Neck: Normal Inspection, Supple, Non-Tender, Full Range of Motion Respiratory/Chest: No Respiratory Distress, Lungs Clear, Normal Breath Sounds, No Accessory Muscle Use, Chest Non-Tender Cardiovascular: Normal Peripheral Pulses, Regular Rate, Rhythm, No Edema, No Gal lop, No JVD, No Murmur, No Rub GI/Abdominal Exam: Soft, Tender (tender throughout. bowel sounds present.) (Male) Exam: Deferred Rectal (Males) Exam: Deferred Back Exam: Normal Inspection, Full Range of Motion Extremities: Normal Inspection Neurological: Alert, Oriented, Normal Cognition Psychiatric: Anxious Skin Exam: Warm, Dry, Intact Course - Re-Assessments/Exams Free Text/Narrative Re-Assessment/Exam: 01/10/21 11:35 Conferred with MD Messina at [facility] ED about pt. Dr. Messina will accept pt to [facility]. Departure - Departure Time of Disposition: 11:35 Disposition: DC/Tfer to Acute Hospital 02 Condition: Good Clinical Impression: Acute abdomen - Discharge Information *PRESCRIPTION DRUG MONITORING PROGRAM REVIEWED*: Not Applicable *COPY OF PRESCRIPTION DRUG MONITORING REPORT IN PATIENT EVITA: Not Applicable Forms: ED Department Discharge, Interfacility Transfer EMTALA <Yousif Chen - Last Filed: 01/10/21 11:40> ED HPI GENERAL MEDICAL PROBLEM - General Source of Information: Reports: Patient, Old Records, RN, RN Notes Reviewed History Limitations: Reports: No Limitations Past Medical History Gastrointestinal History: Reports: PUD (Perforated ulcer 12/10/20) - Past Surgical History GI Surgical History: Reports: Other (See Below) (Perforated gastric ulcer repair 12/10/20) Course - Vital Signs Last Recorded V/S: Last Vital Signs Temp 97.7 F 01/10/21 11:04 Pulse 58 L 01/10/21 11:04 Resp 18 01/10/21 11:04 BP 122/90 01/10/21 11:04 Pulse Ox 100 01/10/21 11:04 - Orders/Labs/Meds Orders: Active Orders 24 hr Category Date Time Status Peripheral IV Care [RC] . DIRECTED Care 01/10/21 07:37 Active CULTURE BLOOD [BC] Stat Lab 01/10/21 07:45 Received CULTURE BLOOD [BC] Stat Lab 01/10/21 08:10 Results Sodium Chloride 0.9% [Saline Flush] Med 01/10/21 07:35 Active 10 ml FLUSH ASDIRECTED PRN Blood Culture x2 Reflex Set [OM.PC] Stat Ot 01/10/21 07:35 Ordered Peripheral IV Insertion Adult [OM.PC] Stat Ot 01/10/21 07:37 Ordered Medication Orders Sodium Chloride (Sodium Chloride 0.9% 10 Ml Syringe) 10 ml FLUSH ASDIRECTED PRN PRN Reason: Keep Vein Open Last Admin: 01/10/21 07:49 Dose: 10 ml Documented by: ANTONIO Labs: Laboratory Tests 01/10/21 01/10/21 01/10/21 Range/Units 08:10 08:10 08:10 WBC 4.9 L (5.0-10.0) 10^3/uL RBC 4.26 L (4.6-6.2) 10^6/uL Hgb 13.2 L (14.0-18.0) g/dL Hct 38.6 L (40.0-54.0) % MCV 90.6 (80-100) fL MCH 31.0 (27.0-34.0) pg MCHC 34.2 (33.0-35.0) g/dL Plt Count 351 (150-450) 10^3/uL Neut % (Auto) 30.1 L (42.2-75.2) % Lymph % (Auto) 59.4 H (20.5-50.1) % [place] % (Auto) 7.4 (2-8) % Eos % (Auto) 2.7 (1.0-3.0) % Baso % (Auto) 0.4 (0.0-1.0) % D-Dimer, Quantitative (0-400) ng/mL Sodium 141 (136-145) mmol/L Potassium 3.6 (3.5-5.1) mmol/L Chloride 102 (98-107) mmol/L Carbon Dioxide 25 (21-32) mmol/L Anion Gap 17.6 H (7-13) mEq/L BUN 5 L (7-18) mg/dL Creatinine 0.84 (0.70-1.30) mg/dL Est Cr Clr Drug Dosing 118.93 mL/min Estimated GFR (MDRD) > 60 BUN/Creatinine Ratio 6.0 (No establ ref range) Glucose 85 (70-99) mg/dL Lactic Acid 2.8 H* (0.4-2.0) mmol/L Calcium 9.2 (8.5-10.1) mg/dL Total Bilirubin 0.5 (0.2-1.0) mg/dL AST 14 L (15-37) U/L ALT 20 (16-63) U/L Alkaline Phosphatase 75 (46-116) U/L C-Reactive Protein < 0.2 (0.0-0.9) mg/dL Total Protein 7.5 (6.4-8.2) g/dL Albumin 3.9 (3.4-5.0) g/dL Globulin 3.6 Albumin/Globulin Ratio 1.1 Amylase 125 H (25-115) U/L Lipase 158 (73-393) U/L Urine Color (YELLOW) Urine Appearance (CLEAR) Urine pH (5.0-9.0) Ur Specific [place] (1.005-1.030) Urine Protein (NEGATIVE) Urine Glucose (UA) (NEGATIVE) Urine Ketones (NEGATIVE) Urine Occult Blood (NEGATIVE) Urine Nitrite (NEGATIVE) Urine Bilirubin (NEGATIVE) Urine Urobilinogen (0.2-1.0) mg/dL Ur Leukocyte Esterase (NEGATIVE) Urine Opiates Screen (NEGATIVE) Ur Oxycodone Screen (NEGATIVE) Urine Methadone Screen (NEGATIVE) Ur Barbiturates Screen (NEGATIVE) U Tricyclic Antidepress (NEGATIVE) Ur Phencyclidine Scrn (NEGATIVE) Ur Amphetamine Screen (NEGATIVE) U Methamphetamines Scrn (NEGATIVE) Urine MDMA Screen (NEGATIVE) U Benzodiazepines Scrn (NEGATIVE) Urine Cocaine Screen (NEGATIVE) U Marijuana (THC) Screen (NEGATIVE) Ethyl Alcohol < 3 (0) mg/dL 01/10/21 01/10/21 01/10/21 Range/Units 08:10 10:03 10:03 WBC (5.0-10.0) 10^3/uL RBC (4.6-6.2) 10^6/uL Hgb (14.0-18.0) g/dL Hct (40.0-54.0) % MCV (80-100) fL MCH (27.0-34.0) pg MCHC (33.0-35.0) g/dL Plt Count (150-450) 10^3/uL Neut % (Auto) (42.2-75.2) % Lymph % (Auto) (20.5-50.1) % [place] % (Auto) (2-8) % Eos % (Auto) (1.0-3.0) % Baso % (Auto) (0.0-1.0) % D-Dimer, Quantitative 102 (0-400) ng/mL Sodium (136-145) mmol/L Potassium (3.5-5.1) mmol/L Chloride (98-107) mmol/L Carbon Dioxide (21-32) mmol/L Anion Gap (7-13) mEq/L BUN (7-18) mg/dL Creatinine (0.70-1.30) mg/dL Est Cr Clr Drug Dosing mL/min Estimated GFR (MDRD) BUN/Creatinine Ratio (No establ ref range) Glucose (70-99) mg/dL Lactic Acid (0.4-2.0) mmol/L Calcium (8.5-10.1) mg/dL Total Bilirubin (0.2-1.0) mg/dL AST (15-37) U/L ALT (16-63) U/L Alkaline Phosphatase (46-116) U/L C-Reactive Protein (0.0-0.9) mg/dL Total Protein (6.4-8.2) g/dL Albumin (3.4-5.0) g/dL Globulin Albumin/Globulin Ratio Amylase (25-115) U/L Lipase (73-393) U/L Urine Color Yellow (YELLOW) Urine Appearance Clear (CLEAR) Urine pH 7.5 (5.0-9.0) Ur Specific [place] 1.015 (1.005-1.030) Urine Protein Negative (NEGATIVE) Urine Glucose (UA) Negative (NEGATIVE) Urine Ketones Negative (NEGATIVE) Urine Occult Blood Negative (NEGATIVE) Urine Nitrite Negative (NEGATIVE) Urine Bilirubin Negative (NEGATIVE) Urine Urobilinogen 0.2 (0.2-1.0) mg/dL Ur Leukocyte Esterase Negative (NEGATIVE) Urine Opiates Screen Positive H (NEGATIVE) Ur Oxycodone Screen Negative (NEGATIVE) Urine Methadone Screen Negative (NEGATIVE) Ur Barbiturates Screen Negative (NEGATIVE) U Tricyclic Antidepress Negative (NEGATIVE) Ur Phencyclidine Scrn Negative (NEGATIVE) Ur Amphetamine Screen Negative (NEGATIVE) U Methamphetamines Scrn Negative (NEGATIVE) Urine MDMA Screen Negative (NEGATIVE) U Benzodiazepines Scrn Negative (NEGATIVE) Urine Cocaine Screen Negative (NEGATIVE) U Marijuana (THC) Screen Positive H (NEGATIVE) Ethyl Alcohol (0) mg/dL Meds: Medications Generic Name Dose Route Start Last Admin Trade Name Ronald PRN Reason Stop Dose Admin Sodium Chloride 10 ml 01/10/21 07:35 01/10/21 07:49 Sodium Chloride 0.9% 10 Ml Syringe FLUSH 10 ml ASDIRECTED PRN Administration Keep Vein Open Discontinued Medications Generic Name Dose Route Start Last Admin Trade Name Ronald PRN Reason Stop Dose Admin Diphenhydramine HCl 25 mg 01/10/21 10:30 01/10/21 10:58 Diphenhydramine 50 Mg/Ml Sdv IVPUSH 01/10/21 10:31 25 mg ONETIME ONE Administration Hydromorphone HCl 1 mg 01/10/21 07:38 01/10/21 07:51 Hydromorphone 1 Mg/Ml Syringe IVPUSH 01/10/21 07:39 1 mg ONETIME ONE Administration Hydromorphone HCl 0.5 mg 01/10/21 09:45 01/10/21 09:49 Hydromorphone 0.5 Mg/0.5 Ml Syringe IVPUSH 01/10/21 09:46 0.5 mg ONETIME ONE Administration Hydromorphone HCl 0.5 mg 01/10/21 10:30 01/10/21 10:48 Hydromorphone 0.5 Mg/0.5 Ml Syringe IVPUSH 01/10/21 10:31 0.5 mg ONETIME ONE Administration Sodium Chloride 1,000 mls @ 999 mls/hr 01/10/21 07:38 01/10/21 07:48 Normal Saline IV 01/10/21 08:38 999 mls/hr .BOLUS ONE Administration Sodium Chloride 1,000 mls @ 999 mls/hr 01/10/21 10:30 01/10/21 10:44 Normal Saline IV 01/10/21 11:30 999 mls/hr .BOLUS ONE Administration Iopamidol 100 ml 01/10/21 08:40 01/10/21 09:40 Iopamidol 612 Mg/Ml 100 Ml Bottle IVPUSH 01/10/21 08:41 75 ml ONETIME ONE Administration Metoclopramide HCl 10 mg 01/10/21 10:30 01/10/21 11:01 Metoclopramide 10 Mg/2 Ml Sdv IVPUSH 01/10/21 10:31 10 mg ONETIME ONE Administration Ondansetron HCl 4 mg 01/10/21 07:38 01/10/21 07:48 Ondansetron 4 Mg/2 Ml Sdv IV 01/10/21 07:39 4 mg ONETIME ONE Administration Ondansetron HCl 4 mg 01/10/21 09:52 01/10/21 09:55 Ondansetron 4 Mg/2 Ml Sdv IV 01/10/21 09:53 4 mg ONETIME ONE Administration Pantoprazole Sodium 80 mg 01/10/21 10:39 01/10/21 10:55 Pantoprazole 40 Mg Vial IVPUSH 01/10/21 10:40 80 mg .BOLUS ONE Administration - Radiology Interpretation Free Text/Narrative:: [facility] [place] [facility] Final Radiology Report Call: [phone] assistance Online chat: [email or web address] Name: RONNIE ALVARENGA Age: 25Years M Date: 01/10/2021 SSN: -- : [id number] Study: CT ABDOMEN PELVIS W CONT Requesting Physician: YOUSIF CHEN Images: [id number] Addl Studies: Provided Clinical History: lower abdominal pain Contrast: With Contrast Medium: Isovue 300 Contrast Amount: 75 mL Contrast Method: Intravenous (IV) Page 1 of 2 PROCEDURE INFORMATION: Exam: CT Abdomen And Pelvis With Contrast Exam date and time: 01/10/2021 9:14 AM Age: 25 years old Clinical indication: Abdominal pain; Acute; Additional info: Lower abdominal pain TECHNIQUE: Imaging protocol: Computed tomography of the abdomen and pelvis with contrast. Radiation optimization: All CT scans at this facility use at least one of these dose optimization techniques: automated exposure control; mA and/or kV adjustment per patient size (includes targeted exams where dose is matched to clinical indication); or iterative reconstruction. Contrast material: ISOVUE 300; Contrast volume: 75 ml; Contrast route: INTRAVENOUS (IV); COMPARISON: CT Abdomen Pelvis w Cont 12/11/2020 1:16 PM FINDINGS: Lungs: Unchanged clear lung bases. Heart: Unchanged normal heart. Mediastinal space: Unchanged small hiatal hernia/distal esophageal wall thickening. Liver: Interval periportal edema. Heterogeneous not дмитрий enhancement type pattern of the liver. Perihepatic fluid. Gallbladder and bile ducts: Possible sludge in gallbladder. Borderline gallbladder wall thickening. No discrete gallstone. Normal CBD. Pancreas: Possible 8 mm pancreatic head/uncinate lesion, image 72, series 2. Spleen: Unchanged normal spleen with incidental geographic enhancement. Adrenal glands: Unchanged normal adrenals. Kidneys and ureters: Extrarenal pelvis of each kidney. Borderline symmetric bilateral ureteral dilatation. No ureteral stone. Unchanged subcentimeter benign renal cysts. RONNIE ALVARENGA | Final Radiology Report CONFIDENTIALITY STATEMENT This report is intended only for use by the referring physician, and only in accordance with law. If you received this in error, call [phone]. Page 2 of 2 Stomach and bowel: Interval ventral midline surgery and surgically corrected prior perforated distal gastric antral/pyloric ulcer. Interval resolution of prior extraluminal gas. Gas fluid level in partially distended stomach. Nonspecific small bowel distension with fluid is noted proximally. No transition zone to suggest obstruction. Mild to moderate colonic feces and gas. Appendix: The appendix is not confirmed on this examination; therefore, cannot assess for appendicitis or possible appendiceal rupture. Intraperitoneal space: Additionally, right pericolic fluid and bilateral pelvic/lower central pelvic free fluid/ascites. HU of ascites measures 10-16. Hazy mesentery. Vasculature: Unopacified vs thrombotic hepatic veins. Contrast material within IVC. Patent portal, splenic, and superior mesenteric veins. Normal aorta / arterial vasculature. Lymph nodes: Unchanged small/indeterminate lymph nodes. Urinary bladder: Moderate bladder with small cystocele. Reproductive: Unchanged normal prostate. Bones/joints: Unchanged scoliosis/bones. Soft tissues: Interval decrease in the overall amount of abdominopelvic fluid. IMPRESSION: 1. Unopacified versus thrombosed hepatic veins with atypical enhancement pattern. Although finding could be an atypical normal variant and based on IV contrast timing, recommend abdominal ultrasound to exclude hepatic vein thrombosis. 2. Interval resolution of free air and surgically corrected prior perforated gastric antral/pyloric ulcer. 3. Although free fluid in abdomen and pelvis is reduced, moderate ascites on this exam is abnormal. Hazy mesentery suggests possible peritonitis? 4. Low-attenuation or cystic 8 mm lesion of pancreatic head/uncinate process. Thank you for allowing us to participate in the care of your patient. Dictated and Authenticated by: Brandon Hess MD 01/10/2021 10:14 AM Central Time ([place] & [place]) [facility] [place] [facility] Final Radiology Report Call: [phone] assistance Online chat: [email or web address] Name: RONNIE ALVARENGA Age: 25Years M Date: 01/10/2021 SSN: -- : [id number] Study: US ABDOMEN LTD Requesting Physician: YOUSIF CHEN Images: [id number] Addl Studies: Provided Clinical History: Abd. pain, abnormal liver by CT Contrast: Without Contrast Medium: Contrast Amount: Contrast Method: Page 1 of 2 PROCEDURE INFORMATION: Exam: US Abdomen; Limited Exam date and time: 01/10/2021 10:24 AM Age: 25 years old Clinical indication: Abdominal pain; Acute; Prior surgery; Surgery date: <1 month; Surgery type: Bowel ulcer perferation; Additional info: Abd. Pain, abnormal liver by CT TECHNIQUE: Imaging protocol: US abdomen. Real time ultrasound with image documentation. Limited exam focused on the region of clinical interest. COMPARISON: 1. CT Abdomen Pelvis w Cont 01/10/2021 9:[address] Abdomen Pelvis w Cont 12/11/2020 1:16 PM FINDINGS: Liver: Provided images of the liver are grossly normal. The liver size was not measured. Hepatic veins: The hepatic veins are patent. Gallbladder: Provided images of the gallbladder are normal. The gallbladder wall thickness was not measured. Pancreas: A previously documented cyst in the head of the pancreas is not documented on this exam but likely remains present. Right kidney: Limited images that incidentally included the right kidney are grossly normal. IMPRESSION: No hepatic vein thrombosis. Thank you for allowing us to participate in the care of your patient. RONNIE ALVARENGA | Final Radiology Report CONFIDENTIALITY STATEMENT This report is intended only for use by the referring physician, and only in accordance with law. If you received this in error, call [phone]. Page 2 of 2 Dictated and Authenticated by: Chandrika Cameron MD 01/10/2021 10:53 AM Central Time ([place] & [place]) Sepsis Event Note (ED) - Focused Exam Vital Signs: Vital Signs Temp Pulse Resp BP Pulse Ox 01/10/21 11:04 97.7 F 58 L 18 122/90 100 01/10/21 08:32 62 16 114/86 98 01/10/21 07:27 97.7 F 66 22 H 120/59 L 98 - My Orders Last 24 Hours: My Active Orders 01/10/21 07:35 Sodium Chloride 0.9% [Saline Flush] 10 ml FLUSH ASDIRECTED PRN Blood Culture x2 Reflex Set [OM.PC] Stat 01/10/21 07:37 Peripheral IV Care [RC] . DIRECTED Peripheral IV Insertion Adult [OM.PC] Stat 01/10/21 07:45 CULTURE BLOOD [BC] Stat 01/10/21 08:10 CULTURE BLOOD [BC] Stat - Assessment/Plan Last 24 Hours: My Active Orders 01/10/21 07:35 Sodium Chloride 0.9% [Saline Flush] 10 ml FLUSH ASDIRECTED PRN Blood Culture x2 Reflex Set [OM.PC] Stat 01/10/21 07:37 Peripheral IV Care [RC] . DIRECTED Peripheral IV Insertion Adult [OM.PC] Stat 01/10/21 07:45 CULTURE BLOOD [BC] Stat 01/10/21 08:10 CULTURE BLOOD [BC] Stat"
[2021-01-10 08:38] LABS: ANION GAP 17.6 mEq/L (7-13); CHLORIDE,CL 102 mmol/L (98-107); SODIUM,NA 141 mmol/L (136-145)
[2021-01-10] MEDS ORDERED: Iopamidol 612 MG/ML 100 ML Bottle IVPUSH ONE (08:40)
[2021-01-10] MEDS ORDERED: HYDROmorphone 0.5 MG/0.5 ML Syringe IVPUSH ONE ×2 (09:45→10:30)
--- NOTE | 2021-01-10 10:14 | CT ---
PROCEDURE INFORMATION: Exam: CT Abdomen And Pelvis With Contrast Exam date and time: 01/10/2021 9:14 AM Age: 25 years old Clinical indication: Abdominal pain; Acute; Additional info: Lower abdominal pain TECHNIQUE: Imaging protocol: Computed tomography of the abdomen and pelvis with contrast. Radiation optimization: All CT scans at this facility use at least one of these dose optimization techniques: automated exposure control; mA and/or kV adjustment per patient size (includes targeted exams where dose is matched to clinical indication); or iterative reconstruction. Contrast material: ISOVUE 300; Contrast volume: 75 ml; Contrast route: INTRAVENOUS (IV); COMPARISON: CT Abdomen Pelvis w Cont 12/11/2020 1:16 PM FINDINGS: Lungs: Unchanged clear lung bases. Heart: Unchanged normal heart. Mediastinal space: Unchanged small hiatal hernia/distal esophageal wall thickening. Liver: Interval periportal edema. Heterogeneous not дмитрий enhancement type pattern of the liver. Perihepatic fluid. Gallbladder and bile ducts: Possible sludge in gallbladder. Borderline gallbladder wall thickening. No discrete gallstone. Normal CBD. Pancreas: Possible 8 mm pancreatic head/uncinate lesion, image 72, series 2. Spleen: Unchanged normal spleen with incidental geographic enhancement. Adrenal glands: Unchanged normal adrenals. Kidneys and ureters: Extrarenal pelvis of each kidney. Borderline symmetric bilateral ureteral dilatation. No ureteral stone. Unchanged subcentimeter benign renal cysts. Stomach and bowel: Interval ventral midline surgery and surgically corrected prior perforated distal gastric antral/pyloric ulcer. Interval resolution of prior extraluminal gas. Gas fluid level in partially distended stomach. Nonspecific small bowel distension with fluid is noted proximally. No transition zone to suggest obstruction. Mild to moderate colonic feces and gas. Appendix: The appendix is not confirmed on this examination; therefore, cannot assess for appendicitis or possible appendiceal rupture. Intraperitoneal space: Additionally, right pericolic fluid and bilateral pelvic/lower central pelvic free fluid/ascites. HU of ascites measures 10-16. Hazy mesentery. Vasculature: Unopacified vs thrombotic hepatic veins. Contrast material within IVC. Patent portal, splenic, and superior mesenteric veins. Normal aorta / arterial vasculature. Lymph nodes: Unchanged small/indeterminate lymph nodes. Urinary bladder: Moderate bladder with small cystocele. Reproductive: Unchanged normal prostate. Bones/joints: Unchanged scoliosis/bones. Soft tissues: Interval decrease in the overall amount of abdominopelvic fluid. IMPRESSION: 1. Unopacified versus thrombosed hepatic veins with atypical enhancement pattern. Although finding could be an atypical normal variant and based on IV contrast timing, recommend abdominal ultrasound to exclude hepatic vein thrombosis. 2. Interval resolution of free air and surgically corrected prior perforated gastric antral/pyloric ulcer. 3. Although free fluid in abdomen and pelvis is reduced, moderate ascites on this exam is abnormal. Hazy mesentery suggests possible peritonitis? 4. Low-attenuation or cystic 8 mm lesion of pancreatic head/uncinate process.
[2021-01-10 10:19] LABS: AMPHETAMINES,URINE NEGATIVE (NEGATIVE); BARBITURATES,URINE NEGATIVE (NEGATIVE); BENZODIAZEPINE,URINE NEGATIVE (NEGATIVE); MDMA (ECSTASY), URINE NEGATIVE (NEGATIVE); METHADONE,URINE NEGATIVE (NEGATIVE); METHAMPHETAMINES,URINE NEGATIVE (NEGATIVE); OPIATES,URINE POSITIVE (NEGATIVE); OXYCODONE,URINE NEGATIVE (NEGATIVE); PHENCYCLIDINE,URINE NEGATIVE (NEGATIVE); TCA,URINE NEGATIVE (NEGATIVE)
[2021-01-10] MEDS ORDERED: Metoclopramide 10 MG/2 ML SDV IVPUSH ONE (10:30)
[2021-01-10] MEDS ORDERED: diphenhydrAMINE 50 MG/ML SDV IVPUSH ONE (10:30)
[2021-01-10] MEDS ORDERED: Pantoprazole 40 MG Vial IVPUSH ONE (10:39)
--- NOTE | 2021-01-10 10:53 | US ---
PROCEDURE INFORMATION: Exam: US Abdomen; Limited Exam date and time: 01/10/2021 10:24 AM Age: 25 years old Clinical indication: Abdominal pain; Acute; Prior surgery; Surgery date: <1 month; Surgery type: Bowel ulcer perferation; Additional info: Abd. Pain, abnormal liver by CT TECHNIQUE: Imaging protocol: US abdomen. Real time ultrasound with image documentation. Limited exam focused on the region of clinical interest. COMPARISON: 1. CT Abdomen Pelvis w Cont 01/10/2021 9:[address] Abdomen Pelvis w Cont 12/11/2020 1:16 PM FINDINGS: Liver: Provided images of the liver are grossly normal. The liver size was not measured. Hepatic veins: The hepatic veins are patent. Gallbladder: Provided images of the gallbladder are normal. The gallbladder wall thickness was not measured. Pancreas: A previously documented cyst in the head of the pancreas is not documented on this exam but likely remains present. Right kidney: Limited images that incidentally included the right kidney are grossly normal. IMPRESSION: No hepatic vein thrombosis.
== END 2021-01-10 11:38 ==
LOC: DL.ED 07:15
DX: R10.84 Generalized abdominal pain (principal)
CPT/HCPCS: 36415; 74177; 76705; 80053; 80305; 80307; 81003; 82150; 83605; 83690; 85025; 85379; 86140; 87040; 96374; 96375; 96376; 99285; C9113; J1170; J1200; J2405; J2765; J7030; Q9967

== ENCOUNTER 2021-04-13 18:06 | Emergency (ER) | payer MEDICAID ==
--- NOTE | 2021-04-13 18:40 | EDM.PDOC ---
ED HPI GENERAL MEDICAL PROBLEM - General Stated Complaint: HURTS IN PELVIC AREA Time Seen by Provider: 04/13/21 18:30 Source of Information: Reports: Patient History Limitations: Reports: No Limitations - History of Present Illness INITIAL COMMENTS - FREE TEXT/NARRATIVE: 25 y/o M c/o L inguinal pain since yesterday. He reports he got the COVID shot yesterday and his symptoms began shortly after that. He is concerned for a blood clot and would like to be evaluated. The pain is sharp, worse with palpation, and radiating over the left hip. He denies drugs, etoh, abd pn, cp, back pn, ext pain, db. Hx of ruptured gastric ulcers and previous heroin addiction. Denies fever, cough, chills, Left Pelvic Pain Score (Numeric/FACES): 7 - Related Data Allergies Allergy/AdvReac Type Severity Reaction Status Date / Time No Known Allergies Allergy Verified 04/13/21 18:20 Home Meds: Home Meds Fluticasone Propion/Salmeterol [Advair 250-50 Diskus] 1 puff INH BID 04/13/21 [History] Pantoprazole Sodium [Protonix] 1 tab PO DAILY 04/13/21 [History] Past Medical History - Past Health History Medical/Surgical History: Denies Medical/Surgical History Cardiovascular History: Reports: Automatic Implantable Cardioverter Defibrillators Respiratory History: Reports: Asthma Gastrointestinal History: Reports: PUD (Perforated ulcer 12/10/20) Musculoskeletal History: Reports: Fracture Other Musculoskeletal History: Hx of right ankle fracture Neurological History: Reports: Seizure Psychiatric History: Reports: ADHD, Addiction, Anxiety Endocrine/Metabolic History: Reports: Hypokalemia Dermatologic History: Reports: None - Infectious Disease History Infectious Disease History: Reports: None - Past Surgical History GI Surgical History: Reports: Other (See Below) (Perforated gastric ulcer repair 12/10/20) Social & Family History - Family History Family Medical History: Unobtainable - Caffeine Use Caffeine Use: Reports: None Other Caffeine Use: unknown - Living Situation & Occupation Living situation: Reports: with Spouse ED ROS GENERAL - Review of Systems Review Of Systems: Comprehensive ROS is negative, except as noted in HPI. ED EXAM, GENERAL - Physical Exam Exam: See Below Exam Limited By: No Limitations General Appearance: Alert, No Apparent Distress Nose: Normal Inspection, Normal Mucosa, No Blood Throat/Mouth: Normal Inspection, Normal Lips, Normal Teeth, Normal Gums, Normal Oropharynx, Normal Voice, No Airway Compromise Head: Atraumatic, Normocephalic Neck: Normal Inspection, Supple, Non-Tender, Full Range of Motion Respiratory/Chest: No Respiratory Distress, Lungs Clear, Normal Breath Sounds, No Accessory Muscle Use, Chest Non-Tender Cardiovascular: Normal Peripheral Pulses, Regular Rate, Rhythm, No Edema, No Gallop, No JVD, No Murmur, No Rub GI/Abdominal: Soft, Non-Tender, No Organomegaly, Other (2cm inflammed nodule L groin with pain and tenderness extending up to the left im with palpation) (Male) Exam: Deferred Rectal (Males) Exam: Deferred Back Exam: Normal Inspection, Full Range of Motion Psychiatric: Normal Affect, Normal Mood Skin Exam: Warm, Dry, Intact Course - Vital Signs Last Recorded V/S: Last Vital Signs Temp 98.8 F 04/13/21 18:21 Pulse 95 04/13/21 18:21 Resp 16 04/13/21 18:21 BP 129/77 04/13/21 18:21 Pulse Ox 100 04/13/21 18:21 - Orders/Labs/Meds Orders: Active Orders 24 hr Category Date Time Status CBC WITH AUTO DIFF [HEME] Stat Lab 04/13/21 18:42 Results ESR [SEDIMENTATION RATE MANUAL] [HEME] Stat Lab 04/13/21 18:42 Results STD PANEL 3 [REF] Stat Lab 04/13/21 18:32 Received Labs: Laboratory Tests 04/13/21 04/13/21 12 Range/Units 18:32 18:42 18:42 WBC 6.9 (5.0-10.0) 10^3/uL RBC 4.56 L (4.6-6.2) 10^6/uL Hgb 14.0 (14.0-18.0) g/dL Hct 41.0 (40.0-54.0) % MCV 89.9 (80-100) fL MCH 30.7 (27.0-34.0) pg MCHC 34.1 (33.0-35.0) g/dL Plt Count 325 (150-450) 10^3/uL Neut % (Auto) 62.7 (42.2-75.2) % Lymph % (Auto) 27.8 (20.5-50.1) % Hendricks % (Auto) 8.6 H (2-8) % Eos % (Auto) 0.6 L (1.0-3.0) % Baso % (Auto) 0.3 (0.0-1.0) % C-Reactive Protein < 0.2 (0.0-0.9) mg/dL Urine Color Yellow (YELLOW) Urine Appearance Clear (CLEAR) Urine pH 8.5 (5.0-9.0) Ur Specific [place] 1.020 (1.005-1.030) Urine Protein Negative (NEGATIVE) Urine Glucose (UA) Negative (NEGATIVE) Urine Ketones Negative (NEGATIVE) Urine Occult Blood Negative (NEGATIVE) Urine Nitrite Negative (NEGATIVE) Urine Bilirubin Negative (NEGATIVE) Urine Urobilinogen 0.2 (0.2-1.0) mg/dL Ur Leukocyte Esterase Negative (NEGATIVE) - Re-Assessments/Exams Free Text/Narrative Re-Assessment/Exam: 04/13/21 19:34 I discussed the pts labs and exam with him. I expect the swollen lymph node i a reaction to the COVID vaccine. I will have him follow up in clinic next week with the pain and swelling do not subside. Departure - Departure Time of Disposition: 19:35 Disposition: Home, Self-Care 01 Condition: Good Clinical Impression: Lymphadenopathy - Discharge Information *PRESCRIPTION DRUG MONITORING PROGRAM REVIEWED*: Not Applicable *COPY OF PRESCRIPTION DRUG MONITORING REPORT IN PATIENT EVITA: Not Applicable Additional Instructions: Use tylenol and ibuprofen for pain as needed. Follow up in clinic next week if the pain does not subside. If any new symptoms or concerns develop contact your primary care facility or return to the ER. Sepsis Event Note (ED) - Focused Exam Vital Signs: Vital Signs Temp Pulse Resp BP Pulse Ox 04/13/21 18:21 98.8 F 95 16 129/77 100 - My Orders Last 24 Hours: My Active Orders 04/13/21 18:32 STD PANEL 3 [REF] Stat 04/13/21 18:42 CBC WITH AUTO DIFF [HEME] Stat ESR [SEDIMENTATION RATE MANUAL] [HEME] Stat - Assessment/Plan Last 24 Hours: My Active Orders 04/13/21 18:32 STD PANEL 3 [REF] Stat 04/13/21 18:42 CBC WITH AUTO DIFF [HEME] Stat ESR [SEDIMENTATION RATE MANUAL] [HEME] Stat
[2021-04-18 13:48] LABS: C.TRACHOMATIS BY TMA Negative (Negative); N.GONORRHOEAE BY TMA Negative (Negative)
== END 2021-04-13 19:48 | disposition home or self-care (01) ==
LOC: DL.ED 18:06
DX: R59.0 Localized enlarged lymph nodes (principal); Z87.11 Personal history of peptic ulcer disease; Z79.899 Other long term (current) drug therapy
CPT/HCPCS: 36415; 81003; 85025; 85651; 86140; 87491; 87563; 87591; 99283

== ENCOUNTER 2021-07-09 09:03 | Emergency (ER) | payer SELFPAY ==
[2021-07-09] MEDS: Sodium Chloride 0.9% 1,000 ML IV ONE (09:51)
[2021-07-09] MEDS: Sodium Chloride 0.9% 10 ML Syringe FLUSH PRN (09:51)
[2021-07-09] MEDS: Ondansetron 4 MG/2 ML SDV IV ONE (09:52)
[2021-07-09] MEDS: Pantoprazole 40 MG Vial IVPUSH ONE (09:54)
[2021-07-09 10:19] LABS: CHLORIDE,CL 104 mmol/L (98-107); SODIUM,NA 141 mmol/L (136-145)
[2021-07-09] MEDS: Iopamidol 612 MG/ML 100 ML Bottle IVPUSH ONE (11:22)
== END 2021-07-09 12:05 | disposition home or self-care (01) ==
LOC: DL.ED 09:03
DX: K52.9 Noninfective gastroenteritis and colitis, unspecified (principal); Z79.899 Other long term (current) drug therapy
CPT/HCPCS: 36415; 74177; 80053; 82150; 82272; 83605; 85025; 86140; 96374; 96375; 99284; C9113; J2405; J7030; Q9967

== ENCOUNTER 2024-08-15 11:51 | Emergency (ER) | payer BC ==
[2024-08-15] MEDS: LORazepam 1 MG Tab PO ONE (12:29)
== END 2024-08-15 12:37 | disposition home or self-care (01) ==
LOC: DL.ED 11:51
DX: R07.9 Chest pain, unspecified (principal); Z79.899 Other long term (current) drug therapy
CPT/HCPCS: 93005; 99284; A9270; 93010

== ENCOUNTER 2024-09-28 14:34 | Emergency (ER) | payer SELFPAY ==
[2024-09-28] MEDS ORDERED: Sodium Chloride 0.9% 10 ML Syringe FLUSH PRN (14:42)
== END 2024-09-28 14:53 | disposition left against medical advice (07) ==
LOC: DL.ED 14:34
DX: G40.909 Epilepsy, unspecified, not intractable, without status epilepticus (principal); Z79.899 Other long term (current) drug therapy
CPT/HCPCS: 99284